=== PATIENT | male | born 1970 | race Native Hawaiian/Other Pacific Islander ===

== ENCOUNTER 2020-05-12 10:27 | Inpatient (IN) | payer OTHER ==
--- NOTE | 2020-05-12 10:58 | Event Note ---
ED Screening Note ED Screening Note: language line used for telugu interpetation [id number] epigastric abd pain that radiates to the back began last week resolved and then returned yesterday +n/v no diarrhea BM this morning was normal PMHx none no past abdominal surgical history +ETOH, drinks 3 days a week +smoker denies drug use epigastric and RUQ pain, will start with US This initial assessment/diagnostic orders/clinical plan/treatment(s) is/are subject to change based on patients health status, clinical progression and re-assessment by fellow clinical providers in the ED. Further treatment and workup at subsequent clinical providers discretion. Patient/guardian urged not to elope from the ED as their condition may be serious if not clinically assessed and managed. Initial orders include: labs, US
--- NOTE | 2020-05-12 12:18 | Ultrasound Report ---
ULTRASOUND ABDOMEN, LIMITED (RIGHT UPPER QUADRANT) INDICATION: epigastric, RUQ pain. COMPARISON: None available. FINDINGS: Pancreas: Visualized portion shows no significant abnormality. Liver: Moderate coarse increased echotexture characteristic for steatosis. Liver measures 15 cm in le ngth Gallbladder: Moderate amount of gallbladder sludge. Several small gallstones. Mildly thickened edemat ous gallbladder wall measuring 3 mm Bile ducts: Not visualized secondary to bowel gas Free fluid: None. Additional Findings: None. IMPRESSION: 1. Mild cholecystitis and cholelithiasis 2. Common bile duct not visualized 3. Hepatic steatosis Signer Name: Trey Oconnor MD Signed: 05/12/2020 12:13 PM Workstation Name: [id number]
[2020-05-12 12:23] LABS: Basophils % (Auto) 0.2 % (0.0-1.8); Hematocrit 50.2 % (35.5-45.6); Hemoglobin 17.8 gm/dl (11.8-15.2); Lymphocytes # (Auto) 0.6 K/mm3 (1.2-5.4); Lymphocytes % (Auto) 3.7 % (13.4-35.0); Mean Corpuscular HGB Conc 35 % (32-34); Mean Corpuscular Volume 96 fl (84-94); Monocytes % (Auto) 11.9 % (0.0-7.3); Platelet Count 143 K/mm3 (140-440); Red Blood Count 5.22 M/mm3 (3.65-5.03)
[2020-05-12 12:42] LABS: Alanine Aminotransferase 118 units/L (7-56); Albumin 4.6 g/dL (3.9-5); Blood Urea Nitrogen 13 mg/dL (9-20); Calcium 9.9 mg/dL (8.4-10.2); Hemolysis Index 28
[2020-05-12 12:43] LABS: BUN/Creatinine Ratio 26
[2020-05-12] MEDS ORDERED: MORPHINE 4 MG/1 ML INJ IV ONE (13:04)
[2020-05-12] MEDS ORDERED: SODIUM CHLORIDE 0.9% 1000 ML 1,000 ML IV ONE ×2 (13:04→13:14)
[2020-05-12] MEDS ORDERED: ONDANSETRON 4 MG/2 ML INJ IV ONE (13:04)
[2020-05-12] MEDS ORDERED: PIPERACIL/TAZOBACTA 4.5/NS 100 4.5 GM/100 ML VIAL IV ONE (13:04)
--- NOTE | 2020-05-12 13:28 | Emergency Department Report ---
ED General Adult HPI - General Chief complaint: Abdominal Pain Stated complaint: STOMACH PAIN EXTREME Time Seen by Provider: 05/12/20 10:56 Source: patient Mode of arrival: Ambulatory Limitations: Language Barrier - History of Present Illness Initial comments: This is a 49-year-old man with no previous known medical problems who was sent by [facility] for evaluation of possible cholecystitis. He is a bit of a poor historian even when history is obtained in Ukrainian as I have. Apparently he has been having intermittent abdominal pain for several days. It does worsen postprandially. He has had nausea but no recent vomiting. He was unaware of fever or chills. He does not report a history of hypertension first blood pressure obtained was 171/98. Prior to my encounter he had screening labs which located leukocytosis and an ultrasound consistent with early cholecystitis with gallstones. He states the pain is in the epigastric area and sometimes radiates to the back. He does not describe any respiratory symptoms or cough. He is not currently nauseated nose does not complain of substantial pain during my encounter. -: days(s) Location: abdomen Radiation: back Quality: aching Consistency: intermittent Improves with: none Worsens with: eating Associated Symptoms: nausea/vomiting Treatments Prior to Arrival: none - Related Data Allergies Allergy/AdvReac Type Severity Reaction Status Date / Time No Known Allergies Allergy Unverified 05/12/20 10:33 ED Review of Systems ROS: Stated complaint: STOMACH PAIN EXTREME Other details as noted in HPI Constitutional: denies: chills, fever Eyes: denies: eye pain, vision change ENT: denies: ear pain, throat pain Respiratory: denies: cough, shortness of breath, wheezing Cardiovascular: denies: chest pain, palpitations Endocrine: no symptoms reported Gastrointestinal: abdominal pain, nausea. denies: diarrhea Genitourinary: denies: urgency, dysuria Musculoskeletal: denies: back pain, arthralgia Skin: denies: rash, lesions Neurological: denies: headache, weakness, paresthesias Psychiatric: denies: anxiety, depression Hematological/Lymphatic: denies: easy bleeding, easy bruising ED Past Medical Hx - Past Medical History Previous Medical History?: Yes Additional medical history: abd pain - Surgical History Past Surgical History?: No - Social History Smoking Status: Current Every Day Smoker Substance Use Type: Alcohol ED Physical Exam - General Limitations: No Limitations General appearance: alert, in no apparent distress - Head Head exam: Present: atraumatic, normocephalic - Eye Eye exam: Present: normal appearance. Absent: scleral icterus - ENT ENT exam: Present: mucous membranes moist - Neck Neck exam: Present: normal inspection - Respiratory Respiratory exam: Present: normal lung sounds bilaterally. Absent: respiratory distress - Cardiovascular Cardiovascular Exam: Present: regular rate, normal rhythm. Absent: systolic murmur, diastolic murmur, rubs, gallop - GI/Abdominal GI/Abdominal exam: Present: soft, tenderness (Mild tenderness in the epigastric to right upper quadrant area), normal bowel sounds. Absent: distended, guarding, rebound (Negative Day), rigid - Rectal Rectal exam: Present: deferred - Extremities Exam Extremities exam: Present: normal inspection - Back Exam Back exam: Present: normal inspection - Neurological Exam Neurological exam: Present: alert, oriented X3, CN II-XII intact. Absent: motor sensory deficit - Psychiatric Psychiatric exam: Present: normal affect, normal mood - Skin Skin exam: Present: warm, dry, intact, normal color. Absent: rash ED Course Vital Signs 05/12/20 10:36 Temperature 97.8 F Pulse Rate 95 H Respiratory 20 Rate Blood Pressure 171/98 O2 Sat by Pulse 96 Oximetry ED Medical Decision Making - Lab Data Result diagrams: 05/12/20 12:01 05/12/20 12:01 Laboratory Results - last 24 hr 05/12/20 05/12/20 12:01 12:01 WBC 17.0 H RBC 5.22 H Hgb 17.8 H Hct 50.2 H MCV 96 H MCH 34 H MCHC 35 H RDW 13.0 L Plt Count 143 Lymph % (Auto) 3.7 L [place] % (Auto) 11.9 H Eos % (Auto) 0.0 Baso % (Auto) 0.2 Lymph # (Auto) 0.6 L [place] # (Auto) 2.0 H Eos # (Auto) 0.0 Baso # (Auto) 0.0 Seg Neutrophils % 84.2 H Seg Neutrophils # 14.3 H Sodium 136 L Potassium 3.7 Chloride 96.0 L Carbon Dioxide 26 Anion Gap 18 BUN 13 Creatinine 0.5 L Estimated GFR > 60 BUN/Creatinine Ratio 26 Glucose 158 H Calcium 9.9 Total Bilirubin 1.30 H AST 53 H ALT 118 H Alkaline Phosphatase 91 Total Protein 7.8 Albumin 4.6 Albumin/Globulin Ratio 1.4 Lipase 35 - Radiology Data FINDINGS: Pancreas: Visualized portion shows no significant abnormality. Liver: Moderate coarse increased echotexture characteristic for steatosis. Liver measures 15 cm in length Gallbladder: Moderate amount of gallbladder sludge. Several small gallstones. Mildly thickened edematous gallbladder wall measuring 3 mm Bile ducts: Not visualized secondary to bowel gas Free fluid: None. Additional Findings: None. IMPRESSION: 1. Mild cholecystitis and cholelithiasis 2. Common bile duct not visualized 3. Hepatic steatosis Critical care attestation.: If time is entered above; I have spent that time in minutes in the direct care of this critically ill patient, excluding procedure time. ED Disposition Clinical Impression: Acute cholecystitis, Uncontrolled hypertension Disposition: OP ADMIT IP TO THIS HOSP Is pt being admited?: Yes Does the pt Need Aspirin: No Condition: Stable Instructions: Hypertension (ED) Time of Disposition: 13:29
--- NOTE | 2020-05-12 16:26 | Consultation ---
History of Present Illness Consult date: 05/12/20 Reason for consult: gallstones Chief complaint: Abdominal pain - History of present illness History of present illness: Patient is German-speaking only and the entire interview was performed using the [employer] non morse intercept technician #[id number]. 49-year-old male with no past medical history who presented to the emergency room with complaints of right upper quadrant abdominal pain. Patient states that the pain started 1 day ago. He states that he had drank a very strong cup of coffee and feels this may have led to the pain. He has never had pain like this in the past. The pain is sharp and starts in the epigastrium. It then radiates to the right upper quadrant and to the back. Mild nausea but no v omiting. No fevers or chills. No chest pain or shortness of breath. No constipation or diarrhea. Patient states his pain is better now after receiving medication in the emergency room. Work-up including abdominal ultrasound revealed acute cholecystitis and surgery is consulted for evaluation. Past History Past Medical History: No medical history Past Surgical History: No surgical history Social history: smoking (Occasional), alcohol abuse (Occasional) Family history: no significant family history Medications and Allergies Allergies Allergy/AdvReac Type Severity Reaction Status Date / Time No Known Allergies Allergy Unverified 05/12/20 10:33 Active Meds: Active Medications Sodium Chloride (Nacl 0.9% 1000 Ml) 1,000 mls @ 125 mls/hr IV ONCE ONE Stop: 05/12/20 21:13 Last Admin: 05/12/20 13:41 Dose: 125 mls/hr Documented by: Review of Systems All systems: negative (10 point ROS performed and negative except for that listed in HPI) Exam Vital Signs Temp Pulse Resp BP Pulse Ox 97.8 F 95 H 20 171/98 96 05/12/20 10:36 05/12/20 10:36 05/12/20 10:36 05/12/20 10:36 05/12/20 10:36 Narrative exam: Gen.: Awake, alert, oriented 3. No apparent distress ENT: Trachea midline. No lymphadenopathy. No scleral icterus or conjunctival pallor CV: S1, S2 present Respiratory: No audible wheezes Abdomen: Soft, nondistended, mild epigastric and right upper quadrant tenderness to palpation. No rebound, rigidity, guarding Extremities: No clubbing, cyanosis, edema Results - Labs 05/12/20 12:01 05/12/20 12:01 Abnormal lab results 05/12/20 05/12/20 Range/Units 12:01 12:01 WBC 17.0 H (4.5-11.0) K/mm3 RBC 5.22 H (3.65-5.03) M/mm3 Hgb 17.8 H (11.8-15.2) gm/dl Hct 50.2 H (35.5-45.6) % MCV 96 H (84-94) fl MCH 34 H (28-32) pg MCHC 35 H (32-34) % RDW 13.0 L (13.2-15.2) % Lymph % (Auto) 3.7 L (13.4-35.0) % [place] % (Auto) 11.9 H (0.0-7.3) % Lymph # (Auto) 0.6 L (1.2-5.4) K/mm3 [place] # (Auto) 2.0 H (0.0-0.8) K/mm3 Seg Neutrophils % 84.2 H (40.0-70.0) % Seg Neutrophils # 14.3 H (1.8-7.7) K/mm3 Sodium 136 L (137-145) mmol/L Chloride 96.0 L (98-107) mmol/L Creatinine 0.5 L (0.8-1.3) mg/dL Glucose 158 H (75-100) mg/dL Total Bilirubin 1.30 H (0.1-1.2) mg/dL AST 53 H (5-40) units/L ALT 118 H (7-56) units/L Diabetes panel 05/12/20 Range/Units 12:01 Sodium 136 L (137-145) mmol/L Potassium 3.7 (3.6-5.0) mmol/L Chloride 96.0 L (98-107) mmol/L Carbon Dioxide 26 (22-30) mmol/L BUN 13 (9-20) mg/dL Creatinine 0.5 L (0.8-1.3) mg/dL Glucose 158 H (75-100) mg/dL Calcium 9.9 (8.4-10.2) mg/dL AST 53 H (5-40) units/L ALT 118 H (7-56) units/L Alkaline Phosphatase 91 (35-129) units/L Total Protein 7.8 (6.3-8.2) g/dL Albumin 4.6 (3.9-5) g/dL Calcium panel 05/12/20 Range/Units 12:01 Calcium 9.9 (8.4-10.2) mg/dL Albumin 4.6 (3.9-5) g/dL Pituitary panel 05/12/20 Range/Units 12:01 Sodium 136 L (137-145) mmol/L Potassium 3.7 (3.6-5.0) mmol/L Chloride 96.0 L (98-107) mmol/L Carbon Dioxide 26 (22-30) mmol/L BUN 13 (9-20) mg/dL Creatinine 0.5 L (0.8-1.3) mg/dL Glucose 158 H (75-100) mg/dL Calcium 9.9 (8.4-10.2) mg/dL Adrenal panel 05/12/20 Range/Units 12:01 Sodium 136 L (137-145) mmol/L Potassium 3.7 (3.6-5.0) mmol/L Chloride 96.0 L (98-107) mmol/L Carbon Dioxide 26 (22-30) mmol/L BUN 13 (9-20) mg/dL Creatinine 0.5 L (0.8-1.3) mg/dL Glucose 158 H (75-100) mg/dL Calcium 9.9 (8.4-10.2) mg/dL Total Bilirubin 1.30 H (0.1-1.2) mg/dL AST 53 H (5-40) units/L ALT 118 H (7-56) units/L Alkaline Phosphatase 91 (35-129) units/L Total Protein 7.8 (6.3-8.2) g/dL Albumin 4.6 (3.9-5) g/dL - Imaging US - abdomen: report reviewed, image reviewed Assessment and Plan 49-year-old male with acute cholecystitis with mild transaminitis/hyperbilirubinemia RUQ U/s - sludge and stones, GB wall 3.8mm, +pericholecystic fluid, CBD not visualized Pt stable. Afebrile. Plan: 1. Admitted to hospitalist service 2. May have clear liquids, n.p.o. past midnight tonight 3. IV fluids 4. IV antibiotics - Zosyn 5. Repeat CBC and CMP in a.m. 6. DVT prophylaxis 7. I discussed my recommendation for cholecystectomy with the patient. All risks, benefits, alternatives were discussed. All questions were answered. The patient is reluctant to consent to surgery at this time. Will follow. Explained to the patient that if he does not show improvement with antibiotics alone over the next 24 hours, will rediscuss surgery. He understands and is agreeable. Thank you for this consultation. Please call with any questions or concerns. Evaluation and treatment of this patient was during the time of the national and state emergency arising from COVID19 coronavirus pandemic. Treatment and procedures performed meet the current and available best practice and guidelines for patient during the COVID pandemic.
[2020-05-12] MEDS ORDERED: ONDANSETRON 4 MG/2 ML INJ IV PRN ×2 (16:29→23:14)
--- NOTE | 2020-05-12 23:02 | History and Physical Report ---
History of Present Illness Date of examination: 05/12/20 Date of admission: 05/12/20 13:33 Chief complaint: Abdominal pain for about 10 days History of present illness: 49-year-old male with no significant past medical history sent by [facility]age clinic for possible cholecystitis. Patient has been having some right upper quadrant pain for several days. No nausea no vomiting. Pain is about 5 on a scale of 1- 10. His blood pressure was high in the emergency room 171/98. No vomiting no diarrhea. No fever no exposure to coronavirus. Food is a exacerbating factor n ot eating is a relieving factor. - Past Medical History Previous Medical History?: Yes Additional medical history: abd pain - Surgical History Past Surgical History?: No - Social History Smoking Status: Current Every Day Smoker Substance Use Type: Alcohol Family history Htn Review of Systems ROS: Stated complaint: STOMACH PAIN EXTREME Other details as noted in HPI Constitutional: denies: chills, fever Eyes: denies: eye pain, vision change ENT: denies: ear pain, throat pain Respiratory: denies: cough, shortness of breath, wheezing Cardiovascular: denies: chest pain, palpitations Endocrine: no symptoms reported Gastrointestinal: abdominal pain, nausea. denies: diarrhea Genitourinary: denies: urgency, dysuria Musculoskeletal: denies: back pain, arthralgia Skin: denies: rash, lesions Neurological: denies: headache, weakness, paresthesias Psychiatric: denies: anxiety, depression Hematological/Lymphatic: denies: easy bleeding, easy bruising Past History Past Medical History: No medical history Past Surgical History: No surgical history Social history: smoking (Occasional), alcohol abuse (Occasional) Family history: no significant family history Medications and Allergies Allergies Allergy/AdvReac Type Severity Reaction Status Date / Time No Known Allergies Allergy Unverified 05/12/20 10:33 Active Meds: Active Medications Sodium Chloride (Nacl 0.9% 1000 Ml) 1,000 mls @ 125 mls/hr IV DIRECT SANDRA Piperacillin Sod/Tazobactam Sod (Zosyn/Ns 4.5gm/100ml) 4.5 gm in 100 mls @ 200 mls/hr IV Q8HR SANDRA; Protocol Morphine Sulfate (Morphine) 2 mg IV Q4H PRN PRN Reason: Pain, Moderate (4-6) Ondansetron HCl (Zofran) 4 mg IV Q8H PRN PRN Reason: Nausea And Vomiting Exam - Constitutional Vitals: Temp Pulse Resp BP Pulse Ox 98.3 F 87 16 120/73 98 05/12/20 21:09 05/12/20 21:09 05/12/20 21:09 05/12/20 21:09 05/12/20 21:09 General appearance: Present: mild distress, well-nourished - EENT Eyes: Present: PERRL ENT: hearing intact, clear oral mucosa - Neck Neck: Present: supple, normal ROM - Respiratory Respiratory effort: normal Respiratory: bilateral: CTA - Cardiovascular Heart rate: 78 Heart Sounds: Present: S1 & S2. Absent: rub, click - Extremities Extremities: pulses symmetrical, No edema Peripheral Pulses: within normal limits - Abdominal General gastrointestinal: Present: soft, non-tender, non-distended, normal bowel sounds Localized gastrointestinal: tender: RUQ (Guarding present), guarding: RUQ Male genitourinary: Present: normal - Integumentary Integumentary: Present: clear, warm, dry - Musculoskeletal Musculoskeletal: gait normal, strength equal bilaterally - Psychiatric Psychiatric: appropriate mood/affect, intact judgment & insight - Neurologic Neurologic: CNII-XII intact, moves all extremities - Allied Health Allied health notes reviewed: nursing, case management Results - Labs CBC & Chem 7: 05/12/20 12:01 05/12/20 12:01 Labs: Laboratory Last Values WBC 17.0 K/mm3 (4.5-11.0) H 05/12/20 12:01 RBC 5.22 M/mm3 (3.65-5.03) H 05/12/20 12:01 Hgb 17.8 gm/dl (11.8-15.2) H 05/12/20 12:01 Hct 50.2 % (35.5-45.6) H 05/12/20 12:01 MCV 96 fl (84-94) H 05/12/20 12:01 MCH 34 pg (28-32) H 05/12/20 12:01 MCHC 35 % (32-34) H 05/12/20 12:01 RDW 13.0 % (13.2-15.2) L 05/12/20 12:01 Plt Count 143 K/mm3 (140-440) 05/12/20 12:01 Lymph % (Auto) 3.7 % (13.4-35.0) L 05/12/20 12:01 [place] % (Auto) 11.9 % (0.0-7.3) H 05/12/20 12:01 Eos % (Auto) 0.0 % (0.0-4.3) 05/12/20 12:01 Baso % (Auto) 0.2 % (0.0-1.8) 05/12/20 12:01 Lymph # (Auto) 0.6 K/mm3 (1.2-5.4) L 05/12/20 12:01 [place] # (Auto) 2.0 K/mm3 (0.0-0.8) H 05/12/20 12:01 Eos # (Auto) 0.0 K/mm3 (0.0-0.4) 05/12/20 12:01 Baso # (Auto) 0.0 K/mm3 (0.0-0.1) 05/12/20 12:01 Seg Neutrophils % 84.2 % (40.0-70.0) H 05/12/20 12:01 Seg Neutrophils # 14.3 K/mm3 (1.8-7.7) H 05/12/20 12:01 Sodium 136 mmol/L (137-145) L 05/12/20 12:01 Potassium 3.7 mmol/L (3.6-5.0) 05/12/20 12:01 Chloride 96.0 mmol/L (98-107) L 05/12/20 12:01 Carbon Dioxide 26 mmol/L (22-30) 05/12/20 12:01 Anion Gap 18 mmol/L 05/12/20 12:01 BUN 13 mg/dL (9-20) 05/12/20 12:01 Creatinine 0.5 mg/dL (0.8-1.3) L 05/12/20 12:01 Estimated GFR > 60 ml/min 05/12/20 12:01 BUN/Creatinine Ratio 26 % 05/12/20 12:01 Glucose 158 mg/dL (75-100) H 05/12/20 12:01 Calcium 9.9 mg/dL (8.4-10.2) 05/12/20 12:01 Total Bilirubin 1.30 mg/dL (0.1-1.2) H 05/12/20 12:01 AST 53 units/L (5-40) H 05/12/20 12:01 ALT 118 units/L (7-56) H 05/12/20 12:01 Alkaline Phosphatase 91 units/L (35-129) 05/12/20 12:01 Total Protein 7.8 g/dL (6.3-8.2) 05/12/20 12:01 Albumin 4.6 g/dL (3.9-5) 05/12/20 12:01 Albumin/Globulin Ratio 1.4 % 05/12/20 12:01 Lipase 35 units/L (13-60) 05/12/20 12:01 - Imaging and Cardiology Imaging and Cardiology: Abdominal CAT scan FINDINGS: Pancreas: Visualized portion shows no significant abnormality. Liver: Moderate coarse increased echotexture characteristic for steatosis. Liver measures 15 cm in length Gallbladder: Moderate amount of gallbladder sludge. Several small gallstones. Mildly thickened edematous gallbladder wall measuring 3 mm Bile ducts: Not visualized secondary to bowel gas Free fluid: None. Additi onal Findings: None. IMPRESSION: 1. Mild cholecystitis and cholelithiasis 2. Common bile duct not visualized 3. Hepatic steatosis Robertson/IV: IV Catheter Type [Left Distal INT / Saline [place] Antecubital] Assessment and Plan Advance Directives: Yes (Full code) VTE prophylaxis?: Chemical Plan of care discussed with patient/family: Yes - Patient Problems (1) SIRS (systemic inflammatory response syndrome) Current Visit: Yes Status: Acute Plan to address problem: Patient has a high white count and tachycardia (2) Acute cholecystitis Current Visit: Yes Status: Acute Plan to address problem: Patient initiated on Zosyn Surgery consult appreciated Patient for cholecystectomy in the morning N.p.o. from midnight Till then clear liquids IV Zosyn initiated (3) Hyponatremia Current Visit: Yes Status: Acute Plan to address problem: Patient on normal saline (4) Hypertension Current Visit: Yes Status: Acute Plan to address problem: Pain induced (5) Transaminitis Current Visit: Yes Status: Acute Plan to address problem: Possibly secondary to cholelithiasis Check hepatitis profile (6) DVT prophylaxis Current Visit: Yes Status: Acute Plan to address problem: On heparin and GI prophylaxis
[2020-05-12] MEDS ORDERED: HYDROmorphone 1 MG/1 ML INJ IV PRN (23:14)
[2020-05-12] MEDS ORDERED: ACETAMINOPHEN 325 MG TAB PO PRN (23:14)
[2020-05-12] MEDS: FAMOTIDINE 20 MG/2 ML INJ IV SCH (23:49)
[2020-05-12] MEDS: SODIUM CHLORIDE 0.9% 1000 ML 1,000 ML IV SCH (23:49)
[2020-05-12] MEDS: HEPARIN 5,000 UNIT/1 ML VIAL SUB-Q SCH (23:49)
[2020-05-12] MEDS: MORPHINE 2 MG/1 ML INJ IV PRN (23:50)
[2020-05-12] MEDS: PIPERACIL/TAZOBACTA 4.5/NS 100 4.5 GM/100 ML VIAL IV SCH (23:51)
[2020-05-13] MEDS: PIPERACIL/TAZOBACTA 4.5/NS 100 4.5 GM/100 ML VIAL IV SCH ×2 (05:00→16:46)
[2020-05-13 06:36] LABS: Hematocrit 46.2 % (35.5-45.6); Hemoglobin 16.3 gm/dl (11.8-15.2); Mean Corpuscular HGB Conc 35 % (32-34); Mean Corpuscular Volume 97 fl (84-94); Platelet Count 122 K/mm3 (140-440); Red Blood Count 4.79 M/mm3 (3.65-5.03); Red Cell Distribution Width 13.1 % (13.2-15.2)
[2020-05-13 06:56] LABS: Alanine Aminotransferase 133 units/L (7-56); Albumin 3.7 g/dL (3.9-5); Blood Urea Nitrogen 8 mg/dL (9-20); Calcium 8.9 mg/dL (8.4-10.2); Hemolysis Index 9
[2020-05-13 06:57] LABS: BUN/Creatinine Ratio 13
[2020-05-13 06:58] LABS: Bilirubin,Direct 2.8 mg/dL (0-0.2); Hepatitis B Surface Antigen Non-Reactive (Negative); Hepatitis C Virus Antibody Non-Reactive (NonReactive)
[2020-05-13] MEDS: FAMOTIDINE 20 MG/2 ML INJ IV SCH ×2 (09:03→23:37)
[2020-05-13] MEDS: HEPARIN 5,000 UNIT/1 ML VIAL SUB-Q SCH ×2 (09:03→23:37)
[2020-05-13 10:17] LABS: Band Neutrophils # (Manual) 0.2 K/mm3; Basophils % (Manual) 0 % (0.0-1.8); Eosinophils % (Manual) 0 % (0.0-4.3); Platelet Estimate Consistent w Auto; RBC Morphology Normal; Total Cells Counted 100
--- NOTE | 2020-05-13 10:38 | Progress Note ---
Assessment and Plan Assessment and plan: (1) SIRS (systemic inflammatory response syndrome) Current Visit: Yes Status: Acute Plan to address problem: Patient has a high white count and tachycardia (2) Acute cholecystitis Current Visit: Yes Status: Acute Plan to address problem: Continue Zosyn Surgery consulted Plan for cholecystectomy today Maintain n.p.o. (3) Hyponatremia Current Visit: Yes Status: Acute Plan to address problem: Patient on normal saline (4) Hypertension Current Visit: Yes Status: Acute Plan to address problem: Pain induced (5) Transaminitis Current Visit: Yes Status: Acute Plan to address problem: Possibly secondary to cholelithiasis Check hepatitis profile (6) DVT prophylaxis Current Visit: Yes Status: Acute Plan to address problem: On heparin and GI prophylaxis History Interval history: 49-year-old male admitted to the hospital with chief complaint of abdominal pain. Patient has been having pain for a few days prior to presentation. Here in the ER, patient had an abdominal imaging that showed cholecystitis so patient was admitted to the hospital. Patient was started on IV antibiotics. Surgery consult requested. Patient seen and examined at bedside this morning. Pain is not severe On IV antibiotics Awaiting surgery Hospitalist Physical - Physical exam Narrative exam: VITAL SIGNS: Reviewed. GENERAL: Awake HEAD: No signs of head trauma. EYES: Pupils are equal. Extraocular motions intact. MOUTH: Oropharynx is normal. NECK: No adenopathy, no JVD. CHEST: Chest with diminished breath sounds bilaterally. No wheezes, rales, or rhonchi. CARDIAC: normal S1 and S2, without murmurs, gallops, or rubs. ABDOMEN: Soft, LUQ mildly tender on deep palpation, no rebound or guarding, and no masses palpated. Bowel Sounds normal. MUSCULOSKELETAL: No edema NEUROLOGIC EXAM: Alert and oriented x3. No focal neurologic deficits SKIN: No obvious lesions - Constitutional Vitals: Temp Pulse Resp BP Pulse Ox 99.5 F 85 18 128/83 96 05/13/20 07:53 05/13/20 07:53 05/13/20 07:53 05/13/20 07:53 05/13/20 07:53 Results - Labs CBC & Chem 7: 05/13/20 06:08 05/13/20 06:08 Labs: Laboratory Last Values WBC 12.1 K/mm3 (4.5-11.0) H 05/13/20 06:08 RBC 4.79 M/mm3 (3.65-5.03) 05/13/20 06:08 Hgb 16.3 gm/dl (11.8-15.2) H 05/13/20 06:08 Hct 46.2 % (35.5-45.6) H 05/13/20 06:08 MCV 97 fl (84-94) H 05/13/20 06:08 MCH 34 pg (28-32) H 05/13/20 06:08 MCHC 35 % (32-34) H 05/13/20 06:08 RDW 13.1 % (13.2-15.2) L 05/13/20 06:08 Plt Count 122 K/mm3 (140-440) L 05/13/20 06:08 Lymph % (Auto) 3.7 % (13.4-35.0) L 05/12/20 12:01 Mcminn % (Auto) Sql Database Programmer 05/13/20 06:08 Eos % (Auto) 0.0 % (0.0-4.3) 05/12/20 12:01 Baso % (Auto) 0.2 % (0.0-1.8) 05/12/20 12:01 Lymph # (Auto) 0.6 K/mm3 (1.2-5.4) L 05/12/20 12:01 Mcminn # (Auto) 2.0 K/mm3 (0.0-0.8) H 05/12/20 12:01 Eos # (Auto) 0.0 K/mm3 (0.0-0.4) 05/12/20 12:01 Baso # (Auto) 0.0 K/mm3 (0.0-0.1) 05/12/20 12:01 Add Manual Diff Complete 05/13/20 06:08 Total Counted 100 05/13/20 06:08 Seg Neutrophils % 84.2 % (40.0-70.0) H 05/12/20 12:01 Seg Neuts % (Manual) 71.0 % (40.0-70.0) H 05/13/20 06:08 Band Neutrophils % 2.0 % 05/13/20 06:08 Lymphocytes % (Manual) 10.0 % (13.4-35.0) L 05/13/20 06:08 Reactive Lymphs % (Man) 0 % 05/13/20 06:08 Monocytes % (Manual) 17.0 % (0.0-7.3) H 05/13/20 06:08 Eosinophils % (Manual) 0 % (0.0-4.3) 05/13/20 06:08 Basophils % (Manual) 0 % (0.0-1.8) 05/13/20 06:08 Metamyelocytes % 0 % 05/13/20 06:08 Myelocytes % 0 % 05/13/20 06:08 Promyelocytes % 0 % 05/13/20 06:08 Blast Cells % 0 % 05/13/20 06:08 Nucleated RBC % Not Reportable 05/13/20 06:08 Seg Neutrophils # 14.3 K/mm3 (1.8-7.7) H 05/12/20 12:01 Seg Neutrophils # Man 8.6 K/mm3 (1.8-7.7) H 05/13/20 06:08 Band Neutrophils # 0.2 K/mm3 05/13/20 06:08 Lymphocytes # (Manual) 1.2 K/mm3 (1.2-5.4) 05/13/20 06:08 Abs React Lymphs (Man) 0.0 K/mm3 05/13/20 06:08 Monocytes # (Manual) 2.1 K/mm3 (0.0-0.8) H 05/13/20 06:08 Eosinophils # (Manual) 0.0 K/mm3 (0.0-0.4) 05/13/20 06:08 Basophils # (Manual) 0.0 K/mm3 (0.0-0.1) 05/13/20 06:08 Metamyelocytes # 0.0 K/mm3 05/13/20 06:08 Myelocytes # 0.0 K/mm3 05/13/20 06:08 Promyelocytes # 0.0 K/mm3 05/13/20 06:08 Blast Cells # 0.0 K/mm3 05/13/20 06:08 WBC Morphology Not Reportable 05/13/20 06:08 Hypersegmented Neuts Not Reportable 05/13/20 06:08 Hyposegmented Neuts Not Reportable 05/13/20 06:08 Hypogranular Neuts Not Reportable 05/13/20 06:08 Smudge Cells Not Reportable 05/13/20 06:08 Toxic Granulation Not Reportable 05/13/20 06:08 Toxic Vacuolation Not Reportable 05/13/20 06:08 Dohle Bodies Not Reportable 05/13/20 06:08 Pelger-Huet Anomaly Not Reportable 05/13/20 06:08 Alfonso Rods Not Reportable 05/13/20 06:08 Platelet Estimate Consistent w auto 05/13/20 06:08 Clumped Platelets Not Reportable 05/13/20 06:08 Plt Clumps, EDTA Not Reportable 05/13/20 06:08 Large Platelets Not Reportable 05/13/20 06:08 Giant Platelets Not Reportable 05/13/20 06:08 Platelet Satelliting Not Reportable 05/13/20 06:08 Plt Morphology Comment Not Reportable 05/13/20 06:08 RBC Morphology Normal 05/13/20 06:08 Dimorphic RBCs Not Reportable 05/13/20 06:08 Polychromasia Not Reportable 05/13/20 06:08 Hypochromasia Not Reportable 05/13/20 06:08 Poikilocytosis Not Reportable 05/13/20 06:08 Anisocytosis Not Reportable 05/13/20 06:08 Microcytosis Not Reportable 05/13/20 06:08 Macrocytosis Not Reportable 05/13/20 06:08 Spherocytes Not Reportable 05/13/20 06:08 Pappenheimer Bodies Not Reportable 05/13/20 06:08 Sickle Cells Not Reportable 05/13/20 06:08 Target Cells Not Reportable 05/13/20 06:08 Tear Drop Cells Not Reportable 05/13/20 06:08 Ovalocytes Not Reportable 05/13/20 06:08 Helmet Cells Not Reportable 05/13/20 06:08 [place] Bodies Not Reportable 05/13/20 06:08 [place] Rings Not Reportable 05/13/20 06:08 [place] Cells Not Reportable 05/13/20 06:08 Bite Cells Not Reportable 05/13/20 06:08 Crenated Cell Not Reportable 05/13/20 06:08 Elliptocytes Not Reportable 05/13/20 06:08 Acanthocytes (Spur) Not Reportable 05/13/20 06:08 Rouleaux Not Reportable 05/13/20 06:08 Hemoglobin C Crystals Not Reportable 05/13/20 06:08 Schistocytes Not Reportable 05/13/20 06:08 Malaria parasites Not Reportable 05/13/20 06:08 Stu Bodies Not Reportable 05/13/20 06:08 Hem Pathologist Commnt No 05/13/20 06:08 Sodium 134 mmol/L (137-145) L 05/13/20 06:08 Potassium 3.6 mmol/L (3.6-5.0) 05/13/20 06:08 Chloride 100.5 mmol/L (98-107) 05/13/20 06:08 Carbon Dioxide 25 mmol/L (22-30) 05/13/20 06:08 Anion Gap 12 mmol/L 05/13/20 06:08 BUN 8 mg/dL (9-20) L 05/13/20 06:08 Creatinine 0.6 mg/dL (0.8-1.3) L 05/13/20 06:08 Estimated GFR > 60 ml/min 05/13/20 06:08 BUN/Creatinine Ratio 13 % 05/13/20 06:08 Glucose 141 mg/dL (75-100) H 05/13/20 06:08 Hemoglobin A1c 5.9 % (4-6) 05/13/20 06:08 Calcium 8.9 mg/dL (8.4-10.2) 05/13/20 06:08 Total Bilirubin 3.80 mg/dL (0.1-1.2) H 05/13/20 06:08 Total Bilirubin 4.00 mg/dL (0.1-1.2) H 05/13/20 06:08 Direct Bilirubin 2.8 mg/dL (0-0.2) H 05/13/20 06:08 Indirect Bilirubin 1.2 mg/dL 05/13/20 06:08 AST 77 units/L (5-40) H 05/13/20 06:08 AST 80 units/L (5-40) H 05/13/20 06:08 ALT 133 units/L (7-56) H 05/13/20 06:08 ALT 135 units/L (7-56) H 05/13/20 06:08 Alkaline Phosphatase 105 units/L (35-129) 05/13/20 06:08 Alkaline Phosphatase 109 units/L (35-129) 05/13/20 06:08 Total Protein 6.3 g/dL (6.3-8.2) 05/13/20 06:08 Total Protein 6.8 g/dL (6.3-8.2) 05/13/20 06:08 Albumin 3.7 g/dL (3.9-5) L 05/13/20 06:08 Albumin 4.0 g/dL (3.9-5) 05/13/20 06:08 Albumin/Globulin Ratio 1.2 % 05/13/20 06:08 Albumin/Globulin Ratio 1.7 % 05/13/20 06:08 Lipase 35 units/L (13-60) 05/12/20 12:01 Hepatitis A IgM Ab Non-reactive (NonReactive) 05/13/20 06:08 Hep Bs Antigen Non-reactive (Negative) 05/13/20 06:08 Hep B Core IgM Ab Non-reactive (NonReactive) 05/13/20 06:08 Hepatitis C Antibody Non-reactive (NonReactive) 05/13/20 06:08 Robertson/IV: Voiding Method Toilet IV Catheter Type [Left Distal INT / Saline Lock [place] Antecubital] Active Medications - Current Medications Current Medications: Generic Name Dose Route Start Last Admin Trade Name Freq PRN Reason Stop Dose Admin Acetaminophen 650 mg 05/12/20 23:14 Tylenol PO Q4H PRN Pain MILD(1-3)/Fever >100.5/WELDON Famotidine 20 mg 05/12/20 23:45 05/13/20 09:03 Pepcid IV 20 mg BID SANDRA Administration Heparin Sodium (Porcine) 5,000 unit 05/12/20 23:30 05/13/20 09:03 Heparin SUB-Q 5,000 unit Q12HR SANDRA Administration Hydromorphone HCl 0.5 mg 05/12/20 23:14 Dilaudid IV Q3H PRN Pain , Severe (7-10) Sodium Chloride 1,000 mls @ 125 mls/hr 05/12/20 16:30 05/12/20 23:49 Nacl 0.9% 1000 Ml IV 125 mls/hr DIRECT SANDRA Administration Piperacillin Sod/Tazobactam Sod 4.5 gm in 100 mls @ 200 mls/hr 05/12/20 22:00 05/13/20 05:00 Zosyn/Ns 4.5gm/100ml IV 200 mls/hr Q8HR SANDRA Administration Protocol Morphine Sulfate 2 mg 05/12/20 16:29 05/12/20 23:50 Morphine IV 2 mg Q4H PRN Administration Pain, Moderate (4-6) Ondansetron HCl 4 mg 05/12/20 23:14 05/12/20 23:49 Zofran IV 4 mg Q8H PRN Administration Nausea And Vomiting Sodium Chloride 10 ml 05/12/20 23:45 05/12/20 23:51 Sodium Chloride Flush Syringe 10 Ml IV 10 ml BID SANDRA Administration Sodium Chloride 10 ml 05/12/20 23:14 Sodium Chloride Flush Syringe 10 Ml IV PRN PRN LINE FLUSH
--- NOTE | 2020-05-13 13:02 | Magnetic Resonance Report ---
MR ABDOMEN MRCP HISTORY: Elevated bilirubin, cholelithiasis, right upper quadrant pain COMPARISON: Ultrasound right upper quadrant 05/12/2020 TECHNIQUE: Multisequence, multiplanar MRI without contrast. Thin slab and radial MRCP images. FINDINGS: The gallbladder is mildly distended measuring 10.7 cm in length and 5.6 cm in diameter. There is mode rate gallbladder wall thickening measuring 6 mm. Small pericholecystic fluid is also identified. A fe w tiny gallstones and a mild degree of sludge is identified within the gallbladder. The common bile d uct and intrahepatic ducts are unremarkable. No evidence for choledocholithiasis. The liver is normal size and contour with mild diffuse fatty infiltration. No focal liver lesion is a ppreciated. The pancreas, spleen, kidneys, adrenal glands, vascular structures and visualized bowel l oops are unremarkable. Normal bone marrow signal in the visualized osseous structures. Minor atelectatic changes are noted at the right lung base. IMPRESSION: Dilated and inflamed gallbladder and tiny gallstones is concerning for acute cholecystitis. No eviden ce for choledocholithiasis. Mild hepatic steatosis. Signer Name: Steffen Saravia Jr, MD Signed: 05/13/2020 12:58 PM Workstation Name: [id number]
--- NOTE | 2020-05-13 15:05 | Event Note ---
Date: 05/13/20 Full GI consult dictated - pt presents w/ ruq pain, ultrasound showed gallstones/cholecystitis, MRCP negative for choledocholithiasis - noted increase LFT's today - no indication for ERCP at this time - await further surgery input, if lap juliana wqould do IOC - will follow
--- NOTE | 2020-05-13 16:35 | Progress Note ---
Assessment and Plan 49-year-old male with 1. acute cholecystitis 2. transaminitis/hyperbilirubinemia RUQ U/s - sludge and stones, GB wall 3.8mm, +pericholecystic fluid, CBD not visualized MRCP -cholecystitis, no choledocholithiasis Pt stable. Afebrile. Plan: 1. Full liquid diet, n.p.o. past midnight tonight 2. GI consulted -discussed with Dr. Etienne. Recommendations appreciated. No indication for ERCP at this time however if bilirubin continues to trend upwards, may be reconsidered. 3. IV fluids 4. IV antibiotics 5. As needed pain control 6. Repeat CMP in a.m. 7. Recommend cholecystectomy. I once again discussed this with the patient and explained to him that he may have had a gallstone that migrated into the common bile duct causing elevation in his biliary labs today. I explained to him that if the bilirubin improves tomorrow, I recommend proceeding with a cholecystectomy with cholangiogram. He understands and is agreeable to surgery. Will tentatively add onto the OR schedule for tomorrow. Thank you for this consultation. Please call with any questions or concerns. Evaluation and treatment of this patient was during the time of the national and state emergency arising from COVID19 coronavirus pandemic. Treatment and procedures performed meet the current and available best practice and guidelines for patient during the COVID pandemic. Subjective Date of service: 05/13/20 Narrative: Patient seen and examined. He states that his pain is nearly resolved. No fevers or chills, chest pain, shortness of breath. He is asking for something to eat. No nausea or vomiting. Objective Vital Signs - 12hr 05/13/20 05/13/20 07:53 15:49 Temperature 99.5 F 98.8 F Pulse Rate 85 98 H Respiratory 18 18 Rate Blood Pressure 128/83 134/80 O2 Sat by Pulse 96 95 Oximetry - General physical appearance Narrative Exam: Gen.: Awake, alert, oriented 3. No apparent distress ENT: Trachea midline. No lymphadenopathy. No scleral icterus or conjunctival pallor CV: S1, S2 present Respiratory: No audible wheezes Abdomen: Soft, nondistended, nontender. No rebound, rigidity, guarding Extremities: No clubbing, cyanosis, edema - Labs 05/13/20 06:08 05/13/20 06:08 Diabetes panel 05/13/20 05/13/20 05/13/20 Range/Units 06:08 06:08 06:08 Sodium 134 L (137-145) mmol/L Potassium 3.6 (3.6-5.0) mmol/L Chloride 100.5 (98-107) mmol/L Carbon Dioxide 25 (22-30) mmol/L BUN 8 L (9-20) mg/dL Creatinine 0.6 L (0.8-1.3) mg/dL Glucose 141 H (75-100) mg/dL Hemoglobin A1c 5.9 (4-6) % Calcium 8.9 (8.4-10.2) mg/dL AST 80 H 77 H (5-40) units/L ALT 135 H 133 H (7-56) units/L Alkaline Phosphatase 109 105 (35-129) units/L Total Protein 6.3 6.8 (6.3-8.2) g/dL Albumin 4.0 3.7 L (3.9-5) g/dL Calcium panel 05/13/20 05/13/20 Range/Units 06:08 06:08 Calcium 8.9 (8.4-10.2) mg/dL Albumin 4.0 3.7 L (3.9-5) g/dL Pituitary panel 05/13/20 Range/Units 06:08 Sodium 134 L (137-145) mmol/L Potassium 3.6 (3.6-5.0) mmol/L Chloride 100.5 (98-107) mmol/L Carbon Dioxide 25 (22-30) mmol/L BUN 8 L (9-20) mg/dL Creatinine 0.6 L (0.8-1.3) mg/dL Glucose 141 H (75-100) mg/dL Calcium 8.9 (8.4-10.2) mg/dL Adrenal panel 05/13/20 05/13/20 Range/Units 06:08 06:08 Sodium 134 L (137-145) mmol/L Potassium 3.6 (3.6-5.0) mmol/L Chloride 100.5 (98-107) mmol/L Carbon Dioxide 25 (22-30) mmol/L BUN 8 L (9-20) mg/dL Creatinine 0.6 L (0.8-1.3) mg/dL Glucose 141 H (75-100) mg/dL Calcium 8.9 (8.4-10.2) mg/dL Total Bilirubin 4.00 H 3.80 H (0.1-1.2) mg/dL AST 80 H 77 H (5-40) units/L ALT 135 H 133 H (7-56) units/L Alkaline Phosphatase 109 105 (35-129) units/L Total Protein 6.3 6.8 (6.3-8.2) g/dL Albumin 4.0 3.7 L (3.9-5) g/dL
--- NOTE | 2020-05-13 21:41 | Consultation ---
REFERRING PHYSICIAN: Reji Everett MD INDICATIONS: 1. Abdominal pain. 2. Gallstones. HISTORY OF PRESENT ILLNESS: The patient is a 49-year-old male being seen by GI for abdominal symptoms. The patient reports 10 days of right upper quadrant abdominal pain, worse with eating. He reports no significant nausea or vomiting. He reports no recent diet or medication changes. Denies any NSAIDs or aspirin. Denies any lower GI symptoms including diarrhea, constipation or rectal bleeding. He reports no weight loss. The patient subsequently came to Emergency Room where he was diagnosed with gallstones and GI consulted to aid in management. No other specific complaints. PAST MEDICAL HISTORY: Negative. MEDICATIONS: Reviewed and updated in chart. SOCIAL HISTORY: Reports social alcohol. Denies tobacco, IV drug abuse. ALLERGIES: No known drug allergies. FAMILY HISTORY: Negative for colon cancer, IBD, or liver disease. REVIEW OF SYSTEMS: GENERAL: Reports some weakness. HEENT: No visual complaints or tinnitus. PULMONARY: No shortness of breath. No cough. No chest pain. GASTROINTESTINAL: Reports abdominal pain. All points of 13-point review of systems otherwise negative. PHYSICAL EXAMINATION: VITAL SIGNS: Temperature of 99.5, pulse 85, respirations 18, blood pressure 128/83. GENERAL: Fairly nourished male, in no significant distress. HEENT: Pupils equal, round and reactive. PULMONARY: Rhonchi. CARDIOVASCULAR: Regular rate and rhythm. Normal S1, S2. ABDOMEN: Positive bowel sounds, soft, mild right upper quadrant discomfort, no guarding, no rebound. SKIN: No obvious rashes. LABORATORY DATA: Pertinent for white count of 12.1, hemoglobin and hematocrit of 16.3 and 46.2, platelet count of 122. Chem-7: Sodium of 134, potassium 3.6, chloride 100, CO2 of 25, BUN and creatinine of 12 and 0.6, glucose of 141, total bilirubin of 3.8, AST and ALT of 77 and 133, albumin of 3.7. Reports abdominal ultrasound on 05/12/2020 showed signs of cholecystitis and cholelithiasis with common bile duct not fully visualized. MRCP on 05/13/2020 showed no obvious signs of choledocholithiasis, but signs of dilated and inflamed gallbladder and tiny gallstones. ASSESSMENT: A 49-year-old male presents with acute right upper quadrant abdominal pain with ultrasound showing cholelithiasis and signs of gallbladder inflammation, but no choledocholithiasis noted on MRCP. It should be noted that the patient's lipase is 35 and negative for pancreatitis. Symptoms are most likely gallbladder related. It should be noted the patient does have an increased bilirubin, which has gone up since admission and so still concerning for choledocholithiasis. PLAN: 1. We will review MRCP and ultrasound. 2. Antiemetics and pain medication per primary team. 3. PPI daily. 4. Lap juliana per surgery team, but would recommend I will see at that time. 5. Follow liver function test. 6. No obvious reason for ERCP at this time, but we will await intraoperative cholangiogram performed at laparoscopic cholecystectomy. 7. We will follow. JOB# [id number] TRENT/MANDI
[2020-05-14] MEDS: PIPERACIL/TAZOBACTA 4.5/NS 100 4.5 GM/100 ML VIAL IV SCH ×4 (01:20→23:14)
[2020-05-14] MEDS: SODIUM CHLORIDE 0.9% 1000 ML 1,000 ML IV SCH (01:20)
[2020-05-14 06:24] LABS: Basophils # (Auto) 0.1 K/mm3 (0.0-0.1); Basophils % (Auto) 0.5 % (0.0-1.8); Eosinophils # (Auto) 0.2 K/mm3 (0.0-0.4); Eosinophils % (Auto) 1.6 % (0.0-4.3); Hematocrit 43.7 % (35.5-45.6); Hemoglobin 15.3 gm/dl (11.8-15.2); Lymphocytes # (Auto) 1.6 K/mm3 (1.2-5.4); Lymphocytes % (Auto) 15.6 % (13.4-35.0); Mean Corpuscular HGB Conc 35 % (32-34); Mean Corpuscular Volume 97 fl (84-94); Monocytes # (Auto) 1.4 K/mm3 (0.0-0.8); Monocytes % (Auto) 13.5 % (0.0-7.3); Platelet Count 121 K/mm3 (140-440); Red Blood Count 4.48 M/mm3 (3.65-5.03); Red Cell Distribution Width 13.1 % (13.2-15.2)
[2020-05-14 06:42] LABS: Alanine Aminotransferase 79 units/L (7-56); Albumin 3.4 g/dL (3.9-5); Blood Urea Nitrogen 12 mg/dL (9-20); Calcium 8.8 mg/dL (8.4-10.2); Hemolysis Index 14
[2020-05-14 06:45] LABS: BUN/Creatinine Ratio 17
--- NOTE | 2020-05-14 09:28 | Progress Note ---
Assessment and Plan Assessment and plan: (1) SIRS (systemic inflammatory response syndrome) Current Visit: Yes Status: Acute Plan to address problem: Patient has a high white count and tachycardia (2) Acute cholecystitis Current Visit: Yes Status: Acute Plan to address problem: Continue Zosyn Surgery consulted Plan for cholecystectomy today Maintain n.p.o. (3) Hyponatremia Current Visit: Yes Status: Acute Plan to address problem: Patient on normal saline (4) Hypertension Current Visit: Yes Status: Acute Plan to address problem: Pain induced (5) Transaminitis Current Visit: Yes Status: Acute Plan to address problem: Possibly secondary to cholelithiasis Check hepatitis profile (6) DVT prophylaxis Current Visit: Yes Status: Acute Plan to address problem: On heparin and GI prophylaxis History Interval history: 49-year-old male admitted to the hospital with chief complaint of abdominal pain. Patient has been having pain for a few days prior to presentation. Here in the ER, patient had an abdominal imaging that showed cholecystitis so patient was admitted to the hospital. Patient was started on IV antibiotics. Surgery consult requested. Patient seen and examined at bedside this morning. Pain is not severe On IV antibiotics Awaiting surgery 05/14/2020 -Patient has MRCP and was seen by GI and no need for ERCP. bilirubin trended down to 1.4 -General surgery was consulted and is going to do cholecystectomy today History Interval history: No nursing issues overnight Patient's going to have cholecystectomy today Hospitalist Physical - Physical exam Narrative exam: Not in cardiopulmonary distress. The patient appeared well nourished and normally developed. Vital signs as documented. Head exam is unremarkable. No scleral icterus . Neck is without jugular venous distension, thyromegaly, or carotid bruits. Lungs are clear to auscultation. Cardiac exam reveals regular rate and Rhythm. Abdominal exam reveals normal bowel sounds, nontender, no organomegaly. Extremities are nonedematous and both femoral and pedal pulses are normal. SENIOR BRANCH MANAGER: Alert and oriented 3. No focal weakness. - Constitutional Vitals: Temp Pulse Resp BP Pulse Ox 99.4 F 80 18 124/70 98 05/14/20 08:02 05/14/20 08:02 05/14/20 08:02 05/14/20 08:02 05/14/20 08:02 General appearance: Present: mild distress, well-nourished Results - Labs CBC & Chem 7: 05/14/20 05:49 05/14/20 05:49 Labs: Laboratory Last Values WBC 10.5 K/mm3 (4.5-11.0) 05/14/20 05:49 RBC 4.48 M/mm3 (3.65-5.03) 05/14/20 05:49 Hgb 15.3 gm/dl (11.8-15.2) H 05/14/20 05:49 Hct 43.7 % (35.5-45.6) 05/14/20 05:49 MCV 97 fl (84-94) H 05/14/20 05:49 MCH 34 pg (28-32) H 05/14/20 05:49 MCHC 35 % (32-34) H 05/14/20 05:49 RDW 13.1 % (13.2-15.2) L 05/14/20 05:49 Plt Count 121 K/mm3 (140-440) L 05/14/20 05:49 Lymph % (Auto) 15.6 % (13.4-35.0) 05/14/20 05:49 Armstrong % (Auto) 13.5 % (0.0-7.3) H 05/14/20 05:49 Eos % (Auto) 1.6 % (0.0-4.3) 05/14/20 05:49 Baso % (Auto) 0.5 % (0.0-1.8) 05/14/20 05:49 Lymph # (Auto) 1.6 K/mm3 (1.2-5.4) 05/14/20 05:49 Armstrong # (Auto) 1.4 K/mm3 (0.0-0.8) H 05/14/20 05:49 Eos # (Auto) 0.2 K/mm3 (0.0-0.4) 05/14/20 05:49 Baso # (Auto) 0.1 K/mm3 (0.0-0.1) 05/14/20 05:49 Add Manual Diff Complete 05/13/20 06:08 Total Counted 100 05/13/20 06:08 Seg Neutrophils % 68.8 % (40.0-70.0) 05/14/20 05:49 Seg Neuts % (Manual) 71.0 % (40.0-70.0) H 05/13/20 06:08 Band Neutrophils % 2.0 % 05/13/20 06:08 Lymphocytes % (Manual) 10.0 % (13.4-35.0) L 05/13/20 06:08 Reactive Lymphs % (Man) 0 % 05/13/20 06:08 Monocytes % (Manual) 17.0 % (0.0-7.3) H 05/13/20 06:08 Eosinophils % (Manual) 0 % (0.0-4.3) 05/13/20 06:08 Basophils % (Manual) 0 % (0.0-1.8) 05/13/20 06:08 Metamyelocytes % 0 % 05/13/20 06:08 Myelocytes % 0 % 05/13/20 06:08 Promyelocytes % 0 % 05/13/20 06:08 Blast Cells % 0 % 05/13/20 06:08 Nucleated RBC % Not Reportable 05/13/20 06:08 Seg Neutrophils # 7.2 K/mm3 (1.8-7.7) 05/14/20 05:49 Seg Neutrophils # Man 8.6 K/mm3 (1.8-7.7) H 05/13/20 06:08 Band Neutrophils # 0.2 K/mm3 05/13/20 06:08 Lymphocytes # (Manual) 1.2 K/mm3 (1.2-5.4) 05/13/20 06:08 Abs React Lymphs (Man) 0.0 K/mm3 05/13/20 06:08 Monocytes # (Manual) 2.1 K/mm3 (0.0-0.8) H 05/13/20 06:08 Eosinophils # (Manual) 0.0 K/mm3 (0.0-0.4) 05/13/20 06:08 Basophils # (Manual) 0.0 K/mm3 (0.0-0.1) 05/13/20 06:08 Metamyelocytes # 0.0 K/mm3 05/13/20 06:08 Myelocytes # 0.0 K/mm3 05/13/20 06:08 Promyelocytes # 0.0 K/mm3 05/13/20 06:08 Blast Cells # 0.0 K/mm3 05/13/20 06:08 WBC Morphology Not Reportable 05/13/20 06:08 Hypersegmented Neuts Not Reportable 05/13/20 06:08 Hyposegmented Neuts Not Reportable 05/13/20 06:08 Hypogranular Neuts Not Reportable 05/13/20 06:08 Smudge Cells Not Reportable 05/13/20 06:08 Toxic Granulation Not Reportable 05/13/20 06:08 Toxic Vacuolation Not Reportable 05/13/20 06:08 Dohle Bodies Not Reportable 05/13/20 06:08 Pelger-Huet Anomaly Not Reportable 05/13/20 06:08 Alfonso Rods Not Reportable 05/13/20 06:08 Platelet Estimate Consistent w auto 05/13/20 06:08 Clumped Platelets Not Reportable 05/13/20 06:08 Plt Clumps, EDTA Not Reportable 05/13/20 06:08 Large Platelets Not Reportable 05/13/20 06:08 Giant Platelets Not Reportable 05/13/20 06:08 Platelet Satelliting Not Reportable 05/13/20 06:08 Plt Morphology Comment Not Reportable 05/13/20 06:08 RBC Morphology Normal 05/13/20 06:08 Dimorphic RBCs Not Reportable 05/13/20 06:08 Polychromasia Not Reportable 05/13/20 06:08 Hypochromasia Not Reportable 05/13/20 06:08 Poikilocytosis Not Reportable 05/13/20 06:08 Anisocytosis Not Reportable 05/13/20 06:08 Microcytosis Not Reportable 05/13/20 06:08 Macrocytosis Not Reportable 05/13/20 06:08 Spherocytes Not Reportable 05/13/20 06:08 Pappenheimer Bodies Not Reportable 05/13/20 06:08 Sickle Cells Not Reportable 05/13/20 06:08 Target Cells Not Reportable 05/13/20 06:08 Tear Drop Cells Not Reportable 05/13/20 06:08 Ovalocytes Not Reportable 05/13/20 06:08 Helmet Cells Not Reportable 05/13/20 06:08 [place] Bodies Not Reportable 05/13/20 06:08 [place] Rings Not Reportable 05/13/20 06:08 [place] Cells Not Reportable 05/13/20 06:08 Bite Cells Not Reportable 05/13/20 06:08 Crenated Cell Not Reportable 05/13/20 06:08 Elliptocytes Not Reportable 05/13/20 06:08 Acanthocytes (Spur) Not Reportable 05/13/20 06:08 Rouleaux Not Reportable 05/13/20 06:08 Hemoglobin C Crystals Not Reportable 05/13/20 06:08 Schistocytes Not Reportable 05/13/20 06:08 Malaria parasites Not Reportable 05/13/20 06:08 Stu Bodies Not Reportable 05/13/20 06:08 Hem Pathologist Commnt No 05/13/20 06:08 Sodium 136 mmol/L (137-145) L 05/14/20 05:49 Potassium 3.7 mmol/L (3.6-5.0) 05/14/20 05:49 Chloride 103.5 mmol/L (98-107) 05/14/20 05:49 Carbon Dioxide 23 mmol/L (22-30) 05/14/20 05:49 Anion Gap 13 mmol/L 05/14/20 05:49 BUN 12 mg/dL (9-20) 05/14/20 05:49 Creatinine 0.7 mg/dL (0.8-1.3) L 05/14/20 05:49 Estimated GFR > 60 ml/min 05/14/20 05:49 BUN/Creatinine Ratio 17 % 05/14/20 05:49 Glucose 110 mg/dL (75-100) H 05/14/20 05:49 Hemoglobin A1c 5.9 % (4-6) 05/13/20 06:08 Calcium 8.8 mg/dL (8.4-10.2) 05/14/20 05:49 Total Bilirubin 1.40 mg/dL (0.1-1.2) H 05/14/20 05:49 Direct Bilirubin 2.8 mg/dL (0-0.2) H 05/13/20 06:08 Indirect Bilirubin 1.2 mg/dL 05/13/20 06:08 AST 27 units/L (5-40) 05/14/20 05:49 ALT 79 units/L (7-56) H 05/14/20 05:49 Alkaline Phosphatase 85 units/L (35-129) 05/14/20 05:49 Total Protein 6.4 g/dL (6.3-8.2) 05/14/20 05:49 Albumin 3.4 g/dL (3.9-5) L 05/14/20 05:49 Albumin/Globulin Ratio 1.1 % 05/14/20 05:49 Lipase 35 units/L (13-60) 05/12/20 12:01 Hepatitis A IgM Ab Non-reactive (NonReactive) 05/13/20 06:08 Hep Bs Antigen Non-reactive (Negative) 05/13/20 06:08 Hep B Core IgM Ab Non-reactive (NonReactive) 05/13/20 06:08 Hepatitis C Antibody Non-reactive (NonReactive) 05/13/20 06:08 Robertson/IV: Voiding Method Toilet IV Catheter Type [Left Distal INT / Saline Lock Port Antecubital] Active Medications - Current Medications Current Medications: Generic Name Dose Route Start Last Admin Trade Name Freq PRN Reason Stop Dose Admin Acetaminophen 650 mg 05/12/20 23:14 Tylenol PO Q4H PRN Pain MILD(1-3)/Fever >100.5/WELDON Famotidine 20 mg 05/12/20 23:45 05/13/20 23:37 Pepcid IV 20 mg BID SANDRA Administration Heparin Sodium (Porcine) 5,000 unit 05/12/20 23:30 05/13/20 23:37 Heparin SUB-Q 5,000 unit Q12HR SANDRA Administration Hydromorphone HCl 0.5 mg 05/12/20 23:14 Dilaudid IV Q3H PRN Pain , Severe (7-10) Sodium Chloride 1,000 mls @ 125 mls/hr 05/12/20 16:30 05/14/20 01:20 Nacl 0.9% 1000 Ml IV 125 mls/hr DIRECT SANDRA Administration Piperacillin Sod/Tazobactam Sod 4.5 gm in 100 mls @ 200 mls/hr 05/12/20 22:00 05/14/20 05:38 Zosyn/Ns 4.5gm/100ml IV 200 mls/hr Q8HR SANDRA Administration Protocol Morphine Sulfate 2 mg 05/12/20 16:29 05/12/20 23:50 Morphine IV 2 mg Q4H PRN Administration Pain, Moderate (4-6) Ondansetron HCl 4 mg 05/12/20 23:14 05/12/20 23:49 Zofran IV 4 mg Q8H PRN Administration Nausea And Vomiting Sodium Chloride 10 ml 05/12/20 23:45 05/13/20 23:38 Sodium Chloride Flush Syringe 10 Ml IV 10 ml BID SANDRA Administration Sodium Chloride 10 ml 05/12/20 23:14 Sodium Chloride Flush Syringe 10 Ml IV PRN PRN LINE FLUSH
--- NOTE | 2020-05-14 10:27 | Anesthesia Consultation ---
Anesthesia Consult and Med Hx Date of service: 05/14/20 - Airway Anesthetic Teeth Evaluation: Good, Partials (upper) ROM Head & Neck: Adequate Mental/Hyoid Distance: Adequate Mallampati Class: Class III Intubation Access Assessment: Possibly Difficult - Pulmonary Exam CTA: Yes - Cardiac Exam Cardiac Exam: RRR - Pre-Operative Health Status ASA Pre-Surgery Classification: ASA2 Proposed Anesthetic Plan: General - Pulmonary Hx Respiratory Symptoms: No - Cardiovascular System Hx Hypertension: No (elevated BP this admission no prior diagnosis) Hx Heart Attack/AMI: No - Central Nervous System CVA: No - Endocrine Hx Renal Disease: No Hx Liver Disease: Yes (elevated LFTs ) Hx Insulin Dependent Diabetes: No Hx Non-Insulin Dependent Diabetes: No Hx Thyroid Disease: No - Other Systems Hx Obesity: No - Additional Comments Anesthesia Medical History Comments: No hx anesthetic complications. pretzel packer #[id number] used for interview and consent.
--- NOTE | 2020-05-14 10:28 | Anesthesia Day of Surgery ---
Anesthesia Day of Surgery - Day of Surgery Patient Examined: Yes Patient H&P Reviewed: Yes Patient is NPO: Yes
[2020-05-14] MEDS ORDERED: HYDROmorphone 1 MG/1 ML INJ IV PRN (10:30)
[2020-05-14] MEDS ORDERED: ONDANSETRON 4 MG/2 ML INJ IV PRN (10:30)
[2020-05-14] MEDS: LACTATED RINGERS 1,000 ML IV SCH (10:45)
[2020-05-14] MEDS ORDERED: MIDAZOLAM 2 MG/2 ML INJ IV NR (11:00)
[2020-05-14] MEDS ORDERED: LIDOCAINE (1%) 10 MG/1 ML VIAL 20 ML MDV ONE (12:51)
[2020-05-14] MEDS ORDERED: SODIUM CHLORIDE 0.9% 100 ML ONE (12:51)
[2020-05-14] MEDS ORDERED: BUPIVACAINE/PF (0.5%) 5 MG/1 ML 30 ML VIAL INFILTRATI ONE ×2 (12:51→13:57)
[2020-05-14] MEDS ORDERED: SUCCINYLCHOLINE CHLORIDE 200 MG/10 ML INJ MDV ONE (13:10)
[2020-05-14] MEDS ORDERED: propofoL 200 MG/20 ML VIAL IV ONE (13:10)
[2020-05-14] MEDS ORDERED: fentaNYL 100 MCG/2 ML INJ ONE (13:10)
[2020-05-14] MEDS ORDERED: LIDOCAINE MPF (2%) 20 MG/1 ML VIAL 5 ML ONE (13:10)
[2020-05-14] MEDS ORDERED: ROCURONIUM 50 MG/5 ML INJ IV ONE (13:10)
[2020-05-14] MEDS ORDERED: LIDOCAINE (1%) 10 MG/1 ML VIAL 20 ML MDV INFILTRATI ONE (13:57)
[2020-05-14] MEDS ORDERED: SODIUM CHLORIDE 0.9% IRRIG SOLN 3000 ML IR ONE (13:58)
[2020-05-14] MEDS ORDERED: SODIUM CHLORIDE 0.9% IRR 1,000 ML BOTTLE IR ONE (13:58)
[2020-05-14] MEDS ORDERED: IOHEXOL IR ONE (13:59)
[2020-05-14] MEDS ORDERED: SODIUM CHLORIDE IR ONE (13:59)
--- NOTE | 2020-05-14 14:05 | Gastroenterology Progress Note ---
Assessment and Plan GI: presented ruq pain w/ gallstones, negative MRCP - pt for lap juliana w/ IOC today, will follow results - post-op management per surgery team - if negative IOC no need further GI input and will sign off Subjective Date of service: 05/14/20 Interval history: - no GI complaints overnight Objective - Constitutional Vitals: Temp Pulse Resp BP Pulse Ox 98.4 F 82 16 133/83 97 05/14/20 09:40 05/14/20 09:40 05/14/20 09:40 05/14/20 09:40 05/14/20 09:40 General appearance: no acute distress - EENT Eyes: PERRL - Respiratory Respiratory: bilateral: CTA - Cardiovascular Rhythm: regular Heart Sounds: Present: S1 & S2 - Gastrointestinal General gastrointestinal: Present: soft, non-tender, non-distended - Labs CBC & Chem 7: 05/14/20 05:49 05/14/20 05:49 Labs: Laboratory Results - last 24 hr 05/14/20 05/14/20 05:49 05:49 WBC 10.5 RBC 4.48 Hgb 15.3 H Hct 43.7 MCV 97 H MCH 34 H MCHC 35 H RDW 13.1 L Plt Count 121 L Lymph % (Auto) 15.6 [place] % (Auto) 13.5 H Eos % (Auto) 1.6 Baso % (Auto) 0.5 Lymph # (Auto) 1.6 [place] # (Auto) 1.4 H Eos # (Auto) 0.2 Baso # (Auto) 0.1 Seg Neutrophils % 68.8 Seg Neutrophils # 7.2 Sodium 136 L Potassium 3.7 Chloride 103.5 Carbon Dioxide 23 Anion Gap 13 BUN 12 Creatinine 0.7 L Estimated GFR > 60 BUN/Creatinine Ratio 17 Glucose 110 H Calcium 8.8 Total Bilirubin 1.40 H AST 27 ALT 79 H Alkaline Phosphatase 85 Total Protein 6.4 Albumin 3.4 L Albumin/Globulin Ratio 1.1
[2020-05-14] MEDS ORDERED: PHENYLEPHRINE/NS 1,000 MCG/10 ML SYRINGE (OR USE) IV ONE (14:40)
[2020-05-14] MEDS ORDERED: NEOSTIGMINE 10MG/10 ML INJ MDV ONE (14:40)
[2020-05-14] MEDS ORDERED: ONDANSETRON 4 MG/2 ML INJ ONE (14:40)
[2020-05-14] MEDS ORDERED: GLYCOPYRROLATE 0.4 MG/2 ML INJ ONE (14:40)
[2020-05-14] MEDS ORDERED: dexAMETHasone 20 MG/5 ML VIAL ONE (14:40)
[2020-05-14] MEDS ORDERED: HYDROmorphone 1 MG/1 ML INJ ONE (14:41)
--- NOTE | 2020-05-14 15:06 | Post Operative Note ---
Pre-op diagnosis: acute cholecystitis Post-op diagnosis: same Findings: 1. negative cholangiogran 2. thickened, inflamed, distended, gangrenous gallbladder 3. GB partially intrahepatic at the dome Procedure: laparoscopic cholecystectomy with IOC Anesthesia: SISSY local Surgeon: JOSE ALFREDO STEPHEN Camp Cook: LUIS CARTER Estimated blood loss: 50-100ml Pathology: list (gallbladder) Specimen disposition: to lab Condition: stable Disposition: PACU
--- NOTE | 2020-05-14 15:48 | Operative Report ---
Operative Report Operative Report: Date: 05/14/20 15:05 Pre-op diagnosis: acute cholecystitis Post-op diagnosis: same Findings: 1. negative cholangiogran 2. thickened, inflamed, distended, gangrenous gallbladder 3. GB partially intrahepatic at the dome Procedure: laparoscopic cholecystectomy with IOC Anesthesia: SISSY local Surgeon: JOSE ALFREDO STEPHEN Slot Machine Floor Person: LUIS CARTER Estimated blood loss: 50-100ml Pathology: list (gallbladder) Specimen disposition: to lab Condition: stable Disposition: PACU HPI and indication: Patient is a 49-year-old male who presented to the emergency room with complaints of upper abdominal pain. Work up was performed which showed leukocytosis along with acute cholecystitis. Patient was admitted to the hospital and started on antibiotics. LFTs and bilirubin was trended. MRCP was negative for choledocholithiasis. Was recommended that the patient undergo cholecystectomy with intraoperative cholangiogram. All risk, benefits, alternatives to surgery were discussed with the patient using the Se[employer] interpreter line. All questions were answered and consent obtained. Procedure in detail: The patient was identified in the preoperative area and taken back to the operating room, placed on the operating room table in supine position. After anesthesia was induced, the abdomen was prepped and draped in usual sterile fashion and timeout was performed. Local anesthetic was infiltrated into all of the skin incision sites. Using an 11 blade a supraumbilical incision was made and through this a Veress needle was used to insufflate the abdomen. The position of the veress needle was confirmed with the saline drop test and the abdomen was then insufflated to 15 mmHg without incident. The veress needle was then removed and a 5 mm Optivie trocar was placed through this incision. The abdomen was then inspected and there was no underlying injury to any of the abdominal contents. An additional 12 mm subxyphoid port, and 2, 5mm RUQ ports were then placed under direct visualization. The patient was then placed into reverse Trendelberg and tilted to the left. The gallbladder was visualized and very distended with a thickened wall and inflammation. The gallbladder was first decompressed with a laparoscopic needle and syringe. 60 cc of green bile was evacuated from the gallbladder. The gallbladder was then grasped and retracted cephalad. The cystic duct and artery were then carefully dissected and the critical view obtained, and the cystic duct and artery were the only two structures seen entering the gallbladder. 2 clips were placed on the proximal aspect of the cystic artery and one distally and this was transected in between the clips using hook electrocautery. 2 clips were placed on the distal aspect of the cystic duct and a duct anatomy was created with EndoShears. An angiocatheter was placed through the duct anatomy into the cystic duct and secured with a Riley clamp. This was flushed with injectable saline which infiltrated easily and did not leak. I then performed a cholangiogram using Omnipaque dye. The cholangiogram showed rapid filling of the common bile duct, small bowel, and intrahepatic ducts. There was no filling defects seen. The cholangiogram catheter was then removed and the gallbladder once again retracted. 3 clips were placed on the proximal aspect of the cystic duct and the duct anatomy was completed using EndoShears. The gallbladder was then dissected off the liver bed using hook electrocautery. The posterior wall of the gallbladder was gangrenous. The dome of the gallbladder was partially intrahepatic. The gallbladder was placed into an Endo Catch bag and removed from the abdomen via the 12 mm port. The abdomen was copiously irrigated with saline until the irrigant returned clear. The liver bed was inspected for hemostasis which was very carefully achieved using electrocautery, Surgicel and Corry powder. The clips on the cystic duct and artery were visualized and intact. Once hemostasis was ensured, a 19 English Wilson drain was placed into the abdomen and brought out via the right lateral abdominal port. This was positioned in the gallbladder fossa and sutured to the skin using a 3-0 nylon drain stitch. The 12 mm port was removed and the fascia closed with interrupted 0 Vicryl sutures using the Arun Davis device. The remainder of the ports removed under direct visualization. The incisions were once again infiltrated with local anesthetic. The skin incisions were approximated using 4-0 Monocryl subcuticular stitches and skin glue. The remaining ports were removed under direct visualization. Skin incisions were closed with 4-0 Monocryl subcuticular stitches and skin glue. All skin incisions were once again infiltrated with local anesthetic. At the end case all sponge, instrument, sharp counts were correct 2. The patient was awoken from anesthesia, extubated, taken to PACU in stable condition.
--- NOTE | 2020-05-14 16:39 | Fluoroscopy Report ---
Technique: Intraoperative fluoroscopic guidance was provided. Fluoroscopy time: 32 seconds. Fluoroscopy images: 2. Findings/Impression: Intraoperative fluoroscopic guidance for intraoperative cholangiogram. Please se e procedure report for further details. Signer Name: Ethan Smiley MD Signed: 05/14/2020 4:34 PM Workstation Name: [id number]
[2020-05-14] MEDS: HEPARIN 5,000 UNIT/1 ML VIAL SUB-Q SCH ×2 (23:13→23:14)
[2020-05-14] MEDS: FAMOTIDINE 20 MG/2 ML INJ IV SCH (23:13)
[2020-05-15] MEDS: LACTATED RINGERS 1,000 ML IV SCH (03:30)
[2020-05-15] MEDS: HYDROcodone/ACETAMINOPHEN 5-325 MG TAB PO PRN ×2 (03:47→10:26)
[2020-05-15] MEDS: PIPERACIL/TAZOBACTA 4.5/NS 100 4.5 GM/100 ML VIAL IV SCH (05:47)
[2020-05-15 07:10] LABS: Alanine Aminotransferase 123 units/L (7-56); Albumin 3.9 g/dL (3.9-5); Blood Urea Nitrogen 11 mg/dL (9-20); Calcium 9.1 mg/dL (8.4-10.2); Hemolysis Index 5
[2020-05-15 07:32] LABS: BUN/Creatinine Ratio 18
--- NOTE | 2020-05-15 08:50 | Progress Note ---
Assessment and Plan Assessment and plan: (1) SIRS (systemic inflammatory response syndrome) Current Visit: Yes Status: Acute Plan to address problem: Patient has a high white count and tachycardia (2) Acute cholecystitis Current Visit: Yes Status: Acute Plan to address problem: Continue Zosyn Surgery consulted Plan for cholecystectomy today Maintain n.p.o. (3) Hyponatremia Current Visit: Yes Status: Acute Plan to address problem: Patient on normal saline (4) Hypertension Current Visit: Yes Status: Acute Plan to address problem: Pain induced (5) Transaminitis Current Visit: Yes Status: Acute Plan to address problem: Possibly secondary to cholelithiasis Check hepatitis profile (6) DVT prophylaxis Current Visit: Yes Status: Acute Plan to address problem: On heparin and GI prophylaxis History Interval history: 49-year-old male admitted to the hospital with chief complaint of abdominal pain. Patient has been having pain for a few days prior to presentation. Here in the ER, patient had an abdominal imaging that showed cholecystitis so patient was admitted to the hospital. Patient was started on IV antibiotics. Surgery consult requested. Patient seen and examined at bedside this morning. Pain is not severe On IV antibiotics Awaiting surgery 05/14/2020 -Patient has MRCP and was seen by GI and no need for ERCP. bilirubin trended down to 1.4 -General surgery was consulted and is going to do cholecystectomy today 05/15/2020; discussed with surgery and surgery is okay with the discharge. Patient will follow with Dr. Larkin in 2 weeks as an outpatient. History Interval history: No nursing issues overnight Status post cholecystectomy Patient has mild abdominal pain Hospitalist Physical - Physical exam Narrative exam: Not in cardiopulmonary distress. The patient appeared well nourished and normally developed. Vital signs as documented. Head exam is unremarkable. No scleral icterus . Neck is without jugular venous distension, thyromegaly, or carotid bruits. Lungs are clear to auscultation. Cardiac exam reveals regular rate and Rhythm. Abdominal exam reveals normal bowel sounds, nontender, no organomegaly. Extremities are nonedematous and both femoral and pedal pulses are normal. AGRONOMY TECHNICIAN: Alert and oriented 3. No focal weakness. - Constitutional Vitals: Temp Pulse Resp BP Pulse Ox 98.5 F 86 20 131/78 95 05/15/20 06:52 05/15/20 06:52 05/15/20 06:52 05/15/20 06:52 05/15/20 06:52 General appearance: Present: mild distress, well-nourished Results - Labs CBC & Chem 7: 05/14/20 05:49 05/15/20 06:13 Labs: Laboratory Last Values WBC 10.5 K/mm3 (4.5-11.0) 05/14/20 05:49 RBC 4.48 M/mm3 (3.65-5.03) 05/14/20 05:49 Hgb 15.3 gm/dl (11.8-15.2) H 05/14/20 05:49 Hct 43.7 % (35.5-45.6) 05/14/20 05:49 MCV 97 fl (84-94) H 05/14/20 05:49 MCH 34 pg (28-32) H 05/14/20 05:49 MCHC 35 % (32-34) H 05/14/20 05:49 RDW 13.1 % (13.2-15.2) L 05/14/20 05:49 Plt Count 121 K/mm3 (140-440) L 05/14/20 05:49 Lymph % (Auto) 15.6 % (13.4-35.0) 05/14/20 05:49 [place] % (Auto) 13.5 % (0.0-7.3) H 05/14/20 05:49 Eos % (Auto) 1.6 % (0.0-4.3) 05/14/20 05:49 Baso % (Auto) 0.5 % (0.0-1.8) 05/14/20 05:49 Lymph # (Auto) 1.6 K/mm3 (1.2-5.4) 05/14/20 05:49 [place] # (Auto) 1.4 K/mm3 (0.0-0.8) H 05/14/20 05:49 Eos # (Auto) 0.2 K/mm3 (0.0-0.4) 05/14/20 05:49 Baso # (Auto) 0.1 K/mm3 (0.0-0.1) 05/14/20 05:49 Add Manual Diff Complete 05/13/20 06:08 Total Counted 100 05/13/20 06:08 Seg Neutrophils % 68.8 % (40.0-70.0) 05/14/20 05:49 Seg Neuts % (Manual) 71.0 % (40.0-70.0) H 05/13/20 06:08 Band Neutrophils % 2.0 % 05/13/20 06:08 Lymphocytes % (Manual) 10.0 % (13.4-35.0) L 05/13/20 06:08 Reactive Lymphs % (Man) 0 % 05/13/20 06:08 Monocytes % (Manual) 17.0 % (0.0-7.3) H 05/13/20 06:08 Eosinophils % (Manual) 0 % (0.0-4.3) 05/13/20 06:08 Basophils % (Manual) 0 % (0.0-1.8) 05/13/20 06:08 Metamyelocytes % 0 % 05/13/20 06:08 Myelocytes % 0 % 05/13/20 06:08 Promyelocytes % 0 % 05/13/20 06:08 Blast Cells % 0 % 05/13/20 06:08 Nucleated RBC % Not Reportable 05/13/20 06:08 Seg Neutrophils # 7.2 K/mm3 (1.8-7.7) 05/14/20 05:49 Seg Neutrophils # Man 8.6 K/mm3 (1.8-7.7) H 05/13/20 06:08 Band Neutrophils # 0.2 K/mm3 05/13/20 06:08 Lymphocytes # (Manual) 1.2 K/mm3 (1.2-5.4) 05/13/20 06:08 Abs React Lymphs (Man) 0.0 K/mm3 05/13/20 06:08 Monocytes # (Manual) 2.1 K/mm3 (0.0-0.8) H 05/13/20 06:08 Eosinophils # (Manual) 0.0 K/mm3 (0.0-0.4) 05/13/20 06:08 Basophils # (Manual) 0.0 K/mm3 (0.0-0.1) 05/13/20 06:08 Metamyelocytes # 0.0 K/mm3 05/13/20 06:08 Myelocytes # 0.0 K/mm3 05/13/20 06:08 Promyelocytes # 0.0 K/mm3 05/13/20 06:08 Blast Cells # 0.0 K/mm3 05/13/20 06:08 WBC Morphology Not Reportable 05/13/20 06:08 Hypersegmented Neuts Not Reportable 05/13/20 06:08 Hyposegmented Neuts Not Reportable 05/13/20 06:08 Hypogranular Neuts Not Reportable 05/13/20 06:08 Smudge Cells Not Reportable 05/13/20 06:08 Toxic Granulation Not Reportable 05/13/20 06:08 Toxic Vacuolation Not Reportable 05/13/20 06:08 Dohle Bodies Not Reportable 05/13/20 06:08 Pelger-Huet Anomaly Not Reportable 05/13/20 06:08 Alfonso Rods Not Reportable 05/13/20 06:08 Platelet Estimate Consistent w auto 05/13/20 06:08 Clumped Platelets Not Reportable 05/13/20 06:08 Plt Clumps, EDTA Not Reportable 05/13/20 06:08 Large Platelets Not Reportable 05/13/20 06:08 Giant Platelets Not Reportable 05/13/20 06:08 Platelet Satelliting Not Reportable 05/13/20 06:08 Plt Morphology Comment Not Reportable 05/13/20 06:08 RBC Morphology Normal 05/13/20 06:08 Dimorphic RBCs Not Reportable 05/13/20 06:08 Polychromasia Not Reportable 05/13/20 06:08 Hypochromasia Not Reportable 05/13/20 06:08 Poikilocytosis Not Reportable 05/13/20 06:08 Anisocytosis Not Reportable 05/13/20 06:08 Microcytosis Not Reportable 05/13/20 06:08 Macrocytosis Not Reportable 05/13/20 06:08 Spherocytes Not Reportable 05/13/20 06:08 Pappenheimer Bodies Not Reportable 05/13/20 06:08 Sickle Cells Not Reportable 05/13/20 06:08 Target Cells Not Reportable 05/13/20 06:08 Tear Drop Cells Not Reportable 05/13/20 06:08 Ovalocytes Not Reportable 05/13/20 06:08 Helmet Cells Not Reportable 05/13/20 06:08 [place] Bodies Not Reportable 05/13/20 06:08 [place] Rings Not Reportable 05/13/20 06:08 Jose Carlos Cells Not Reportable 05/13/20 06:08 Bite Cells Not Reportable 05/13/20 06:08 Crenated Cell Not Reportable 05/13/20 06:08 Elliptocytes Not Reportable 05/13/20 06:08 Acanthocytes (Spur) Not Reportable 05/13/20 06:08 Rouleaux Not Reportable 05/13/20 06:08 Hemoglobin C Crystals Not Reportable 05/13/20 06:08 Schistocytes Not Reportable 05/13/20 06:08 Malaria parasites Not Reportable 05/13/20 06:08 Stu Bodies Not Reportable 05/13/20 06:08 Hem Pathologist Commnt No 05/13/20 06:08 Sodium 136 mmol/L (137-145) L 05/15/20 06:13 Potassium 3.9 mmol/L (3.6-5.0) 05/15/20 06:13 Chloride 103.1 mmol/L (98-107) 05/15/20 06:13 Carbon Dioxide 23 mmol/L (22-30) 05/15/20 06:13 Anion Gap 14 mmol/L 05/15/20 06:13 BUN 11 mg/dL (9-20) 05/15/20 06:13 Creatinine 0.6 mg/dL (0.8-1.3) L 05/15/20 06:13 Estimated GFR > 60 ml/min 05/15/20 06:13 BUN/Creatinine Ratio 18 % 05/15/20 06:13 Glucose 146 mg/dL (75-100) H 05/15/20 06:13 Hemoglobin A1c 5.9 % (4-6) 05/13/20 06:08 Calcium 9.1 mg/dL (8.4-10.2) 05/15/20 06:13 Total Bilirubin 1.00 mg/dL (0.1-1.2) 05/15/20 06:13 Direct Bilirubin 2.8 mg/dL (0-0.2) H 05/13/20 06:08 Indirect Bilirubin 1.2 mg/dL 05/13/20 06:08 AST 87 units/L (5-40) H 05/15/20 06:13 ALT 123 units/L (7-56) H 05/15/20 06:13 Alkaline Phosphatase 117 units/L (35-129) 05/15/20 06:13 Total Protein 7.0 g/dL (6.3-8.2) 05/15/20 06:13 Albumin 3.9 g/dL (3.9-5) 05/15/20 06:13 Albumin/Globulin Ratio 1.3 % 05/15/20 06:13 Lipase 35 units/L (13-60) 05/12/20 12:01 Hepatitis A IgM Ab Non-reactive (NonReactive) 05/13/20 06:08 Hep Bs Antigen Non-reactive (Negative) 05/13/20 06:08 Hep B Core IgM Ab Non-reactive (NonReactive) 05/13/20 06:08 Hepatitis C Antibody Non-reactive (NonReactive) 05/13/20 06:08 Robertson/IV: Voiding Method Toilet IV Catheter Type [Left Distal INT / Saline Lock Port Antecubital] Active Medications - Current Medications Current Medications: Generic Name Dose Route Start Last Admin Trade Name Freq PRN Reason Stop Dose Admin Acetaminophen 650 mg 05/12/20 23:14 Tylenol PO Q4H PRN Pain MILD(1-3)/Fever >100.5/WELDON Hydrocodone Bitart/Acetaminophen 1 each 05/14/20 16:00 05/15/20 03:47 Sullivan 5/325 PO 1 each Q4H PRN Administration Pain, Moderate (4-6) Famotidine 20 mg 05/12/20 23:45 05/14/20 23:13 Pepcid IV 20 mg BID SANDRA Administration Heparin Sodium (Porcine) 5,000 unit 05/12/20 23:30 05/14/20 23:14 Heparin SUB-Q 5,000 unit Q12HR SANDRA Administration Sodium Chloride 1,000 mls @ 125 mls/hr 05/12/20 16:30 05/14/20 01:20 Nacl 0.9% 1000 Ml IV 125 mls/hr DIRECT SANDRA Administration Piperacillin Sod/Tazobactam Sod 4.5 gm in 100 mls @ 200 mls/hr 05/12/20 22:00 05/15/20 05:47 Zosyn/Ns 4.5gm/100ml IV 200 mls/hr Q8HR SANDRA Administration Protocol Lactated Ringer's 1,000 mls @ 100 mls/hr 05/14/20 10:00 05/15/20 03:30 Lactated Ringers IV 100 mls/hr DIRECT SANDRA Administration Morphine Sulfate 2 mg 05/12/20 16:29 05/12/20 23:50 Morphine IV 2 mg Q4H PRN Administration Pain , Severe (7-10) Ondansetron HCl 4 mg 05/12/20 23:14 05/12/20 23:49 Zofran IV 4 mg Q8H PRN Administration Nausea And Vomiting Sodium Chloride 10 ml 05/12/20 23:45 05/14/20 23:15 Sodium Chloride Flush Syringe 10 Ml IV 10 ml BID SANDRA Administration Sodium Chloride 10 ml 05/12/20 23:14 Sodium Chloride Flush Syringe 10 Ml IV PRN PRN LINE FLUSH
--- NOTE | 2020-05-15 09:54 | Discharge Summary ---
<JOSE ALFREDO STEPHEN - Last Filed: 05/15/20 12:12> Providers - Providers Date of Admission: 05/13/20 07:36 Attending physician: WILLIAM GODOY MD 05/12/20 13:29 Consult to Physician [CONS] Urgent Comment: Consulting Provider: JOSE ALFREDO STEPHEN Physician Instructions: Reason For Exam: early cholecystitis, gallstones 05/13/20 08:18 Consult to Physician [CONS] Routine Comment: Consulting Provider: ANNAMARIE TSAI Physician Instructions: Reason For Exam: likely choledocolithiasis Primary care physician: LAB ANIMAL TECHNICIAN Hospitalization Condition: Stable Disposition: DC-01 TO HOME OR SELFCARE Exam - Constitutional Vitals: Temp Pulse Resp BP Pulse Ox 98.5 F 86 20 131/78 95 05/15/20 06:52 05/15/20 06:52 05/15/20 06:52 05/15/20 06:52 05/15/20 06:52 Plan Additional Instructions: Usted se hawk sometido a reg ciruga para extirpar la vescula biliar. Te sentirs dolorido brett los prximos white. Los hematomas alrededor de la incisin podran ser normales. Dieta: Dieta regular alimentos que son suaves y fciles de digerir. Trate de evitar los alimentos grasos o fritos de inmediato. Asegrese de beber noel agua y mantenerse hidratado. Actividad: Se le anima a caminar y puede subir y bajar los escalones. No conduzca si est tomando analgsicos narcticos recetados. Ducha: Puede ducharse en 1 da. Seque la incisin y no frote ni frote. No entre en reg baera de hidromasaje, piscina o baera donde gracie incisiones estarn bajo el agua. Instrucciones para el cuidado de heridas: Mantenga las incisiones limpias y secas. Hay pegamento para la piel en las incisiones que se caer por s solo. Medicamentos para el dolor: Se recomienda usar medicamentos para el dolor de venta shahla guillermo Tylenol o ibuprofeno guillermo se indica en el frasco para el control del dolor. Si el dolor no se controla con estos medicamentos, se le hawk dado reg receta para analgsicos ms nafisa. Por favor, utilice guillermo se indica y si no termina los analgsicos recetados, por favor regrese a smith farmacia. Razones para llamar al consultorio del cirujano: Si tiene fiebre >100.4 Si est teniendo dolor abdominal o vmitos crecientes Si tiene dolor que no est controlado con analgsicos recetados Si tiene drenaje si pus o enrojecimiento alrededor de las incisiones. Cundo volver a mariza a smith cirujano: Por favor llame a la oficina ([phone]) para hacer reg pankaj para mariza al cirujano en 2 semanas. Llame si tiene alguna pregunta. [facility] [place] Follow up with: PRIMARY CAREMD [Primary Care Provider] - 7 Days JOSE ALFREDO STEPHEN DO [Staff Physician] - 14 Days Prescriptions: HYDROcodone/APAP 5-325 [[place] 5-325 mg TAB] 1 each PO Q4H PRN #14 tablet PRN Reason: Pain, Moderate (4-6) <WILLIAM GODOY - Last Filed: 05/15/20 14:56> Providers - Providers Date of Admission: 05/13/20 07:36 Date of discharge: 05/15/20 Attending physician: WILLIAM GODOY MD 05/12/20 13:29 Consult to Physician [CONS] Urgent Comment: Consulting Provider: JOSE ALFREDO STEPHEN Physician Instructions: Reason For Exam: early cholecystitis, gallstones 05/13/20 08:18 Consult to Physician [CONS] Routine Comment: Consulting Provider: ANNAMARIE TSAI Physician Instructions: Reason For Exam: likely choledocolithiasis Primary care physician: LAB ANIMAL TECHNICIAN Hospitalization Reason for admission: Acute cholecystitis, transaminitis Procedures: Cholecystectomy Hospital course: 49-year-old male with no significant past medical history sent by triage clinic for possible cholecystitis. Patient has been having some right upper quadrant pain for several days. No nausea no vomiting. Pain is about 5 on a scale of 1- 10. His blood pressure was high in the emergency room 171/98. No vomiting no diarrhea. No fever no exposure to coronavirus. Food is a exacerbating factor not eating is a relieving factor. 05/14/2020 -Patient has MRCP and was seen by GI and no need for ERCP. bilirubin trended down to 1.4 -General surgery was consulted and is going to do cholecystectomy today 05/15/2020; patient had cholecystectomy yesterday. Patient is doing well after cholecystectomy. Transaminitis and bilirubin level trending down. Discussed with neurosurgery and recommend to discharge the patient. Time spent for discharge: 32 minutes - Discharge Diagnoses (1) Acute cholecystitis Status: Acute (2) SIRS (systemic inflammatory response syndrome) Status: Acute (3) Transaminitis Status: Acute Core Measure Documentation - Palliative Care Palliative Care/ Comfort Measures: Not Applicable - Core Measures Any of the following diagnoses?: none Exam - Physical Exam Narrative exam: Not in cardiopulmonary distress. The patient appeared well nourished and normally developed. Vital signs as documented. Head exam is unremarkable. No scleral icterus . Neck is without jugular venous distension, thyromegaly, or carotid bruits. Lungs are clear to auscultation. Cardiac exam reveals regular rate and Rhythm. Abdominal exam reveals normal bowel sounds, nontender, no organomegaly. Extremities are nonedematous and both femoral and pedal pulses are normal. TRAVEL PTA: Alert and oriented 3. No focal weakness. - Constitutional Vitals: Temp Pulse Resp BP Pulse Ox 98.5 F 86 20 131/78 95 05/15/20 06:52 05/15/20 06:52 05/15/20 06:52 05/15/20 06:52 05/15/20 06:52 Plan Activity: no restrictions Weight Bearing Status: Full Weight Bearing Diet: advance as tolerated Wound: per your surgeon's advice
[2020-05-15] MEDS: FAMOTIDINE 20 MG/2 ML INJ IV SCH (10:26)
[2020-05-15] MEDS: HEPARIN 5,000 UNIT/1 ML VIAL SUB-Q SCH (10:27)
[2020-05-15] MEDS: MORPHINE 2 MG/1 ML INJ IV PRN (11:52)
--- NOTE | 2020-05-15 12:10 | Progress Note ---
Assessment and Plan 49-year-old male status post laparoscopic cholecystectomy with IOC, postop day 1 1. acute cholecystitis 2. Elevated LFTs, bilirubin Patient stable. Bilirubin is normal. LFTs mildly elevated likely secondary to cholecystectomy yesterday. Plan: 1. Regular diet 2. DC IV fluid 3. As needed p.o. pain control 4. DC antibiotics 5. TRACI drain discontinued -drain removed intact and a foam dressing applied. 6. May be discharged home from surgical standpoint. Verbal and written discharge instructions given to the patient in German. All questions answered. Thank you for this consultation. Please call with any questions or concerns. Subjective Date of service: 05/15/20 Narrative: Patient seen and examined. Complains of pain near TRACI drain site. Otherwise overnight was unremarkable. Afebrile. Tolerating a diet. No nausea or vomiting. Objective Vital Signs - 12hr 05/15/20 05/15/20 04:22 06:52 Temperature 99.0 F 98.5 F Pulse Rate 99 H 86 Respiratory 18 20 Rate Blood Pressure 134/88 131/78 O2 Sat by Pulse 95 95 Oximetry - General physical appearance Narrative Exam: Gen.: Awake, alert, oriented 3. No apparent distress ENT: Trachea midline. No lymphadenopathy. No scleral icterus or conjunctival pallor CV: S1, S2 present Respiratory: No audible wheezes Abdomen: Soft, nondistended, nontender. Visions clean, dry, intact. TRACI drain with dark sanguinous drainage. No rebound, rigidity, guarding Extremities: No clubbing, cyanosis, edema Output TRACI drain: 60 cc over 24 hours - Labs 05/14/20 05:49 05/15/20 06:13 Diabetes panel 05/15/20 Range/Units 06:13 Sodium 136 L (137-145) mmol/L Potassium 3.9 (3.6-5.0) mmol/L Chloride 103.1 (98-107) mmol/L Carbon Dioxide 23 (22-30) mmol/L BUN 11 (9-20) mg/dL Creatinine 0.6 L (0.8-1.3) mg/dL Glucose 146 H (75-100) mg/dL Calcium 9.1 (8.4-10.2) mg/dL AST 87 H (5-40) units/L ALT 123 H (7-56) units/L Alkaline Phosphatase 117 (35-129) units/L Total Protein 7.0 (6.3-8.2) g/dL Albumin 3.9 (3.9-5) g/dL Calcium panel 05/15/20 Range/Units 06:13 Calcium 9.1 (8.4-10.2) mg/dL Albumin 3.9 (3.9-5) g/dL Pituitary panel 05/15/20 Range/Units 06:13 Sodium 136 L (137-145) mmol/L Potassium 3.9 (3.6-5.0) mmol/L Chloride 103.1 (98-107) mmol/L Carbon Dioxide 23 (22-30) mmol/L BUN 11 (9-20) mg/dL Creatinine 0.6 L (0.8-1.3) mg/dL Glucose 146 H (75-100) mg/dL Calcium 9.1 (8.4-10.2) mg/dL Adrenal panel 05/15/20 Range/Units 06:13 Sodium 136 L (137-145) mmol/L Potassium 3.9 (3.6-5.0) mmol/L Chloride 103.1 (98-107) mmol/L Carbon Dioxide 23 (22-30) mmol/L BUN 11 (9-20) mg/dL Creatinine 0.6 L (0.8-1.3) mg/dL Glucose 146 H (75-100) mg/dL Calcium 9.1 (8.4-10.2) mg/dL Total Bilirubin 1.00 (0.1-1.2) mg/dL AST 87 H (5-40) units/L ALT 123 H (7-56) units/L Alkaline Phosphatase 117 (35-129) units/L Total Protein 7.0 (6.3-8.2) g/dL Albumin 3.9 (3.9-5) g/dL
[2020-05-15 12:54] VITALS: BP 119/83
--- NOTE | 2020-05-15 15:38 | Gastroenterology Progress Note ---
Assessment and Plan GI: s/p lap juliana with negative IOC - management per surgery - will sign off Subjective Date of service: 05/15/20 Interval history: - no problems overnight Objective - Constitutional Vitals: Temp Pulse Resp BP Pulse Ox 98.1 F 84 16 119/83 92 05/15/20 11:17 05/15/20 11:17 05/15/20 11:17 05/15/20 11:17 05/15/20 11:17 General appearance: no acute distress - EENT Eyes: PERRL - Respiratory Respiratory: bilateral: CTA - Cardiovascular Rhythm: regular Heart Sounds: Present: S1 & S2 - Gastrointestinal General gastrointestinal: Present: soft, non-tender, non-distended - Labs CBC & Chem 7: 05/14/20 05:49 05/15/20 06:13 Labs: Laboratory Results - last 24 hr 05/15/20 06:13 Sodium 136 L Potassium 3.9 Chloride 103.1 Carbon Dioxide 23 Anion Gap 14 BUN 11 Creatinine 0.6 L Estimated GFR > 60 BUN/Creatinine Ratio 18 Glucose 146 H Calcium 9.1 Total Bilirubin 1.00 AST 87 H ALT 123 H Alkaline Phosphatase 117 Total Protein 7.0 Albumin 3.9 Albumin/Globulin Ratio 1.3
== END 2020-05-15 13:33 | disposition home or self-care (01) | DRG 418 ==
LOC: ED 10:27 → 3A 13:33 → 3B 20:23 → OBSVTOIN 05-13 07:36
PROVIDERS: ADMIT Internal Medicine; ATTEND Internal Medicine
PROC: 0FT44ZZ Resection of Gallbladder, Percutaneous Endoscopic Approach (ICD-10-PCS; principal; 2020-05-14)
PROC: BF141ZZ Fluoroscopy of Gallbladder, Bile Ducts and Pancreatic Ducts using Low Osmolar Contrast (ICD-10-PCS; 2020-05-14)
DX: K80.12 Calculus of gallbladder with acute and chronic cholecystitis without obstruction (principal); R65.10 Systemic inflammatory response syndrome (SIRS) of non-infectious origin without acute organ dysfunction; E87.1 Hypo-osmolality and hyponatremia; I10 Essential (primary) hypertension; R74.01 Elevation of levels of liver transaminase levels; K76.0 Fatty (change of) liver, not elsewhere classified; F17.200 Nicotine dependence, unspecified, uncomplicated; E80.6 Other disorders of bilirubin metabolism
CPT/HCPCS: 36415; 74181; 74300; 76705; 80053; 80074; 80076; 83036; 83690; 85007; 85025; 85027; 88304; 96365; 96367; 96375; G0378; A4217; J0330; J1100; J1170; J1644; J2250; J2270; J2370; J2405; J2543; J2704; J2710; J3010; J3246; J7030; J7120; Q9967